=== PATIENT | female | born 2000 | race Caucasian/White ===

== ENCOUNTER 2021-07-01 12:47 | Outpatient (CLI) | payer OTHER | END 2021-07-01 12:48 | disposition home or self-care (01) | LOC: BICMRI 12:47 | PROVIDERS: ATTEND Internal Medicine Gastroenterology | DX: K76.9 Liver disease, unspecified (principal); R93.2 Abnormal findings on diagnostic imaging of liver and biliary tract | CPT/HCPCS: 74183 ==